=== PATIENT | female | born 1985 | race Caucasian/White ===

== ENCOUNTER 2020-04-23 17:14 | Emergency (ER) | payer OTHER ==
[~2020-04-23 17:14] MED LIST: ALBUTEROL SULF IH; APAP/OXYCODONE1 TA2 PO; BACTRIM DS 8001 TA1 PO; CEFADROXIL500 M1 PO; CLARITIN10 MG PO; DOXYCYCLINE100 M3 PO; IBU800 MG PO; NIZORAL 2%15 GM PO; PENICILLIN-VK500 M1 PO; TRAMADOL HCL50 MG PO; TRIMOX500 MG PO; ULTRAM50 MG PO; VICODIN 500 MG-1 TAB PO
[2020-04-23] MEDS ORDERED: VIVITROL380 MG IM (17:39)
[2020-04-23 18:01] LABS: BILIRUBIN NEGATIVE (NEGATIVE); BLOOD 3+ (NEGATIVE); CLARITY CLOUDY (CLEAR); COLOR ORANGE (YELLOW); GLUCOSE NEGATIVE (NEGATIVE); KETONE NEGATIVE (NEGATIVE)
[2020-04-23 18:02] LABS: LEUKO ESTERASE 2+ (NEGATIVE); NITRITE POSITIVE (NEGATIVE)
[2020-04-23 18:12] LABS: BACTERIA 3+; EPITHELIAL CELLS 16-20; RBC 31-40 rbc/hpf (0-2); WBC TNTC wbc/hpf (0-5)
[2020-04-23] MEDS ORDERED: PYRIDIUM100 MG PO (18:46)
[2020-04-23] MEDS ORDERED: SEPTDS PO (18:46)
== END 2020-04-23 19:02 | disposition home or self-care (01) ==
LOC: ED 17:14
PROVIDERS: Emergency Medicine
DX: N39.0 Urinary tract infection, site not specified (principal); J45.909 Unspecified asthma, uncomplicated; F17.200 Nicotine dependence, unspecified, uncomplicated; Z79.899 Other long term (current) drug therapy

== ENCOUNTER 2020-08-18 13:36 | Emergency (ER) | payer OTHER ==
[~2020-08-18 13:36] MED LIST changes: +PYRIDIUM100 MG PO; +SEPTDS PO; +VIVITROL380 MG IM
[2020-08-18 15:02] LABS: BASO # 0.1 10*3/uL (0.0-0.1); BASO % 0.6 % (0.0-1.0); EOS # 0.3 10*3/uL (0.0-0.4); EOS % 3.6 % (1.0-4.0); HEMATOCRIT 43.9 % (37.0-47.0); LYMPH # 2.7 10*3/uL (1.3-4.4); LYMPH % 31.4 % (27.0-41.0); MEAN CELL VOLUME 84.1 fl (81.0-99.0); MEAN CORPUSCULAR HGB 26.6 pg (27.0-31.0); MEAN CORPUSCULAR HGB CONC 31.7 g/dl (33.0-37.0); MEAN PLATELET VOLUME 8.9 fl (9.6-12.3); MONO # 0.7 10*3/uL (0.1-1.0); MONO % 8.4 % (3.0-9.0); NEUT # 4.9 10*3/uL (2.3-7.9); NEUT % 55.7 % (47.0-73.0); PLATELET COUNT AUTOMATED 309 10*3/uL (130-400); RED BLOOD COUNT 5.22 10*6/uL (4.10-5.10); RED CELL DISTRI WIDTH 13.5 % (0-14.5); WHITE BLOOD COUNT 8.7 10*3/uL (4.8-10.8)
[2020-08-18 15:22] LABS: ALBUMIN 3.8 gm/dl (3.1-4.5); ALKALINE PHOSPHATASE 87 U/L (45-117); BUN 11 mg/dl (7-24); CHLORIDE 109 mmol/L (98-107); CREATININE 0.82 mg/dL (0.55-1.02); POTASSIUM 4.3 mmol/L (3.5-5.1); SGOT/AST 60 IU/L (3-35); SGPT/ALT 105 U/L (12-78); SODIUM 139 mmol/L (136-145)
[2020-08-18 15:23] LABS: TROPONIN I < 0.015 ng/ml (<0.045)
[2020-08-18] MEDS ORDERED: MECLIZINE HCL25 M2 PO (16:17)
== END 2020-08-18 16:47 | disposition home or self-care (01) ==
LOC: ED 13:36
PROVIDERS: Emergency Medicine
DX: R42 Dizziness and giddiness (principal); R11.0 Nausea; J45.909 Unspecified asthma, uncomplicated; F17.200 Nicotine dependence, unspecified, uncomplicated; Z79.2 Long term (current) use of antibiotics; Z79.899 Other long term (current) drug therapy; Z86.14 Personal history of Methicillin resistant Staphylococcus aureus infection